=== PATIENT | male | born 1955 | race Caucasian/White ===

== ENCOUNTER → 2016-11-27 | Outpatient (CLI) | payer BC ==
[~2016-11-27] MED LIST: ASPI81TA21 PO; FISHOIL PO; GABA1CAP PO; GLIP10TA3 PO; LOSA100T2 PO; METF1000 PO; MULTTAB58 PO; OMEG10007 PO; SIMV10TA2 PO
--- NOTE | 2016-11-27 16:47 | DIAGNOSTIC IMAGING REPORT ---
KUB HISTORY: LEFT URETERAL STONE, NEPHROLITHIASIS COMPARISON: Abdomen and pelvis CT 05/12/2012. FINDINGS: The bowel gas pattern is unremarkable. There are no dilated loops of small bowel to suggest an obstruction. The renal shadows are partially obscured by overlying bowel. No definite right renal calculi. Possible 6 mm stone within the upper pole the left kidney. No ureteral calculi. Calcifications in the deep pelvis likely represent phleboliths. Calcifications overlying the sacrum appear to be secondary to the common iliac arteries. No pneumoperitoneum or pneumatosis. IMPRESSION: 1. Possible 6 mm stone within the upper pole of the left kidney. No right renal or ureteral calculi identified. 2. Calcifications in the deep pelvis are nonspecific but favor phleboliths. Electronically signed by: Omar Talley M.D. 11/27/2016 4:45 PM Dictated Date/Time: 11/27/2016 4:42 PM
== END | disposition home or self-care (01) ==
LOC: C.RADBC 15:50
PROVIDERS: ATTEND Nurse Practitioner Family
DX: N20.0 Calculus of kidney (principal); N20.1 Calculus of ureter

== ENCOUNTER → 2016-11-28 | Outpatient (CLI) | payer BC ==
[2016-11-28 19:10] LABS: BLOOD UREA NITROGEN 43 mg/dl (7-18)
== END | disposition home or self-care (01) ==
LOC: C.LABMFLN 10:13
PROVIDERS: ATTEND Nurse Practitioner Family
DX: N20.1 Calculus of ureter (principal)

== ENCOUNTER 2016-11-29 12:46 | Emergency (ER) | payer BC ==
[~2016-11-29] VITALS: Ht 180.3 cm; Wt 115.6 kg
[~2016-11-29 12:46] MED LIST changes: -OMEG10007 PO
[2016-11-29 12:52] VITALS: Ht 180.3 cm; Wt 115.6 kg
[2016-11-29] MEDS ORDERED: SODIUM CHLORIDE 0.9% 1000ML 1,000 ML IV STA (13:03)
[2016-11-29] MEDS ORDERED: ONDANSETRON INJ 2 MG/ML 2 ML VIAL IV STA (13:03)
[2016-11-29] MEDS ORDERED: MoRPHine SULFATE 4 MG/ML 1 ML CARP\\VIAL IV STA (13:09)
--- NOTE | 2016-11-29 13:59 | DIAGNOSTIC IMAGING REPORT ---
ABDOMEN AND PELVIS CT WITHOUT CONTRAST CT DOSE: 1149.09 mGycm HISTORY: Flank pain flank pain TECHNIQUE: Multiaxial CT images of the abdomen and pelvis were performed without the use of intravenous and oral contrast according to the standard department stone protocol. COMPARISON STUDY: None. FINDINGS: Minimal basilar dependent atelectasis. Liver demonstrates several hypodensities medial aspect right as well as medial left hepatic lobe. These are nonspecific in the absence of contrast enhancement. Pancreas is unremarkable. Right kidney is negative for hydronephrosis. Left kidney demonstrates slight edematous appearance with slight fullness left renal collecting system. A mild perinephric infiltrative changes similar to the contralateral right. There is slight fullness of the proximal left ureter compared to the right. A well-defined obstructing lesion or calculus is not appreciated. Bowel pattern is nonobstructive. There are several scattered diverticuli with no evidence of diverticulitis. Bladder is midline. IMPRESSION: Slight fullness left renal collecting system... 2. No evidence for an obstructing urinary tract calculus. 3. Differential considerations include left renal pyelonephritis versus recently passed calculus. 4. Chronic colonic diverticulosis Electronically signed by: Benedict Merlos M.D. 11/29/2016 1:57 PM Dictated Date/Time: 11/29/2016 1:50 PM
[2016-11-29 14:03] LABS: PARTIAL THROMBOPLASTIN RATIO 1.2; PROTHROMBIN TIME (PATIENT) 10.2 SECONDS (9.0-12.0)
[2016-11-29 14:19] LABS: HEMATOCRIT 39.4 % (42-52); MEAN CELL VOLUME 84.2 fL (80-100); MEAN CORPUSCULAR HEMOGLOBIN 29.5 pg (25-34); MEAN PLATELET VOLUME 12.8 fL (7.4-10.4); PLATELET COUNT 122 K/uL (130-400); RED BLOOD COUNT 4.68 M/uL (4.7-6.1); WHITE BLOOD COUNT 9.99 K/uL (4.8-10.8)
[2016-11-29 14:20] LABS: BASO % 0.2 %; BASO ABS # 0.02 K/uL (0-0.2); COMPLETE YES; EOS % 0.4 %; GIANT PLATELETS 1+; IG% 0.3 %; LYMPH % 19.1 %; LYMPH ABS # 1.91 K/uL (1.2-3.4); MONO % 8.7 %; NEUT % 71.3 %; PLT ESTIMATE DECREASED
[2016-11-29 14:33] LABS: BUN/CREATININE RATIO 17.9 (10-20); CALCIUM 9.4 mg/dl (8.5-10.1); CREATININE 1.8 mg/dl (0.60-1.40); POTASSIUM 4.1 mmol/L (3.5-5.1)
[2016-11-29 14:57] LABS: URINE APPEARANCE CLEAR (CLEAR); URINE BILIRUBIN NEG (NEG); URINE COLOR YELLOW; URINE EPITHELIAL CELL AUTO 0-5 /lpf (0-5); URINE NITRITE NEG (NEG); URINE SPECIFIC GRAVITY 1.008 (1.000-1.030); UROBILINOGEN NEG (NEG); ZZUR CULT IF INDIC CLEAN CATCH NO
[2016-11-29 14:58] LABS: MANUAL MICROSCOPIC REQUIRED? NO; REVIEW REQ? NO
--- NOTE | 2016-11-29 15:04 | EMERGENCY ROOM VISIT NOTE ---
History Report prepared by Sunny: Bibi Harrison Under the Supervision of: Dr. David Pineda D.O. First contact with patient: 12:57 Chief Complaint: KIDNEY STONE Stated Complaint: KIDNEY STONE, POSSIBLE RENAL FAILURE History of Present Illness The patient is a 61 year old male who presents to the Emergency Room with complaints persistent flank pain starting three days ago. He currently rates his discomfort at a 6/10 in severity. He is taking Percocet which is helps relieve his pain. Three days ago, the patient had a CT scan which showed that he had a kidney stone. He was referred to urology. They did some blood work yesterday. Today he was told that he might be in renal failure and that he needed to present to the ED. He denies any change in diet or fluid intake. Source of History: patient Onset: 3 days ago Position: other (flank) Symptom Intensity: 6/10 Quality: other (pain) Timing: other (persistent) Modifying Factors (Relieving): narcotics Review of Systems See HPI for pertinent positives & negatives. A total of 10 systems reviewed and were otherwise negative. Past Medical & Surgical Medical Problems: (1) Diabetes (2) Hypertension (3) Kidney stone Family History Diabetes mellitus Heart disease Hypertension Social History Smoking Status: Former Smoker Alcohol Use: none Marital Status: Housing Status: lives with family Occupation Status: employed Current/Historical Medications Scheduled Aspirin Enteric Coated (Ecotrin Or Generic), 81 MG PO DAILY Fish Oil (Correll-3), 1 CAP PO DAILY Gabapentin (Neurontin), 300 MG PO TID Glipizide (Glucotrol), 20 MG PO BID Losartan Potassium & Hydrochlo (Hyzaar), 1 TAB PO DAILY Metformin Hcl (Glucophage), 2 TABLETS PO BID Multiple Vitamin (Multivitamin), 1 TABLET PO DAILY Simvastatin (Zocor), 20 MG PO QPM Allergies Coded Allergies: No Known Allergies (Unverified , 08/07/16) Physical Exam Vital Signs Date Time Temp Pulse Resp B/P Pulse Ox O2 Delivery O2 Flow Rate FiO2 11/29/16 14:31 85 20 155/79 94 Room Air 11/29/16 12:52 37.0 102 18 160/85 97 Room Air Physical Exam CONSTITUTIONAL/VITAL SIGNS: Reviewed / noted above. GENERAL: Non-toxic in appearance. INTEGUMENTARY: Warm, dry, and [place]. HEAD: Normocephalic. EYES: without scleral icterus or trauma. ENT/OROPHARYNX: clear and moist. LYMPHADENOPATHY/NECK: Is supple without lymphadenopathy or meningismus. RESPIRATORY: Lungs clear and equal. CARDIOVASCULAR: Regular rate and rhythm. GI/ABDOMEN: Soft and nontender. No organomegaly or pulsatile mass. No rebound or guarding. Normal bowel sounds. EXTREMITIES: Warm and well perfused. BACK: No CVA tenderness. NEUROLOGICAL: Intact without focal deficits. PSYCHIATRIC: normal affect. MUSCULOSKELETAL: Normally developed with good muscle tone. Medical Decision & Procedures ER Provider Diagnostic Interpretation: Radiology results as stated below per my review and radiologist interpretation: ABDOMEN AND PELVIS CT WITHOUT CONTRAST CT DOSE: 1149.09 mGycm HISTORY: Flank pain flank pain TECHNIQUE: Multiaxial CT images of the abdomen and pelvis were performed without the use of intravenous and oral contrast according to the standard department stone protocol. COMPARISON STUDY: None. FINDINGS: Minimal basilar dependent atelectasis. Liver demonstrates several hypodensities medial aspect right as well as medial left hepatic lobe. These are nonspecific in the absence of contrast enhancement. Pancreas is unremarkable. Right kidney is negative for hydronephrosis. Left kidney demonstrates slight edematous appearance with slight fullness left renal collecting system. A mild perinephric infiltrative changes similar to the contralateral right. There is slight fullness of the proximal left ureter compared to the right. A well-defined obstructing lesion or calculus is not appreciated. Bowel pattern is nonobstructive. There are several scattered diverticuli with no evidence of diverticulitis. Bladder is midline. IMPRESSION: Slight fullness left renal collecting system... 2. No evidence for an obstructing urinary tract calculus. 3. Differential considerations include left renal pyelonephritis versus recently passed calculus. 4. Chronic colonic diverticulosis Electronically signed by: Benedict Merlos M.D. 11/29/2016 1:57 PM Dictated Date/Time: 11/29/2016 1:50 PM Laboratory Results 11/29/16 13:10 Red Blood Count 4.68, Mean Corpuscular Volume 84.2, Mean Corpuscular Hemoglobin 29.5, Mean Corpuscular Hemoglobin Concent 35.0, Mean Platelet Volume 12.8, Neutrophils (%) (Auto) 71.3, Lymphocytes (%) (Auto) 19.1, Monocytes (%) (Auto) 8.7, Eosinophils (%) (Auto) 0.4, Basophils (%) (Auto) 0.2, Neutrophils # (Auto) 7.12, Lymphocytes # (Auto) 1.91, Monocytes # (Auto) 0.87, Eosinophils # (Auto) 0.04, Basophils # (Auto) 0.02 11/29/16 13:10 Test 11/29/16 13:10 White Blood Count 9.99 K/uL (4.8-10.8) Red Blood Count 4.68 M/uL (4.7-6.1) Hemoglobin 13.8 g/dL (14.0-18.0) Hematocrit 39.4 % (42-52) Mean Corpuscular Volume 84.2 fL (80-100) Mean Corpuscular Hemoglobin 29.5 pg (25-34) Mean Corpuscular Hemoglobin Concent 35.0 g/dl (32-36) Platelet Count 122 K/uL (130-400) Mean Platelet Volume 12.8 fL (7.4-10.4) Neutrophils (%) (Auto) 71.3 % Lymphocytes (%) (Auto) 19.1 % Monocytes (%) (Auto) 8.7 % Eosinophils (%) (Auto) 0.4 % Basophils (%) (Auto) 0.2 % Neutrophils # (Auto) 7.12 K/uL (1.4-6.5) Lymphocytes # (Auto) 1.91 K/uL (1.2-3.4) Monocytes # (Auto) 0.87 K/uL (0.11-0.59) Eosinophils # (Auto) 0.04 K/uL (0-0.5) Basophils # (Auto) 0.02 K/uL (0-0.2) RDW Standard Deviation 41.1 fL (36.4-46.3) RDW Coefficient of Variation 13.5 % (11.5-14.5) Immature Granulocyte % (Auto) 0.3 % Immature Granulocyte # (Auto) 0.03 K/uL (0.00-0.02) Platelet Estimate DECREASED Giant Platelets 1+ Prothrombin Time 10.2 SECONDS (9.0-12.0) Prothromb Time International Ratio 1.0 (0.9-1.1) Activated Partial Thromboplast Time 31.7 SECONDS (21.0-31.0) Partial Thromboplastin Ratio 1.2 Urine Color YELLOW Urine Appearance CLEAR (CLEAR) Urine pH 6.0 (4.5-7.5) Urine Specific [place] 1.008 (1.000-1.030) Urine Protein NEG (NEG) Urine Glucose (UA) 2+ (NEG) Urine Ketones NEG (NEG) Urine Occult Blood 3+ (NEG) Urine Nitrite NEG (NEG) Urine Bilirubin NEG (NEG) Urine Urobilinogen NEG (NEG) Urine Leukocyte Esterase NEG (NEG) Urine WBC (Auto) 1-5 /hpf (0-5) Urine RBC (Auto) 10-30 /hpf (0-4) Urine Hyaline Casts (Auto) 1-5 /lpf (0-5) Urine Epithelial Cells (Auto) 0-5 /lpf (0-5) Urine Bacteria (Auto) NEG (NEG) Anion Gap 5.0 mmol/L (3-11) Est Creatinine Clear Calc Drug Dose 55.0 ml/min Estimated GFR () 45.7 Estimated GFR (Non- 39.5 BUN/Creatinine Ratio 17.9 (10-20) Calcium Level 9.4 mg/dl (8.5-10.1) Total Bilirubin 0.8 mg/dl (0.2-1) Direct Bilirubin 0.2 mg/dl (0-0.2) Aspartate Amino Transf (AST/SGOT) 12 U/L (15-37) Alanine Aminotransferase (ALT/SGPT) 37 U/L (12-78) Alkaline Phosphatase 45 U/L (45-117) Total Protein 8.4 gm/dl (6.4-8.2) Albumin 4.3 gm/dl (3.4-5.0) Lipase 350 U/L (73-393) Laboratory results as stated above per my review. Medications Administered Medications (Trade) Dose Ordered Sig/Mandi Route Start Time Stop Time Status Last Admin Dose Admin Sodium Chloride (Nss 1000ml) 1,000 ml @ 999 mls/hr Q1H1M STAT IV 11/29/16 13:03 11/29/16 14:03 DC 11/29/16 13:15 999 MLS/HR Ondansetron HCl (Zofran Inj) 4 mg NOW STAT IV 11/29/16 13:03 11/29/16 13:05 DC 11/29/16 13:29 4 MG Morphine Sulfate (MoRPHine SULFATE INJ) 4 mg NOW STAT IV 11/29/16 13:09 11/29/16 13:10 DC 11/29/16 13:30 4 MG ED Course 1301: Previous medical records were reviewed. The patient was evaluated in room A10. A complete history and physical examination was performed. 1303: Zofran Inj 4 mg IV, NSS 1000 ml @ 999 mls/hr IV. 1309: Morphine Sulfate 4 mg IV. 1500: On reevaluation, the patient is resting comfortably. I discussed the results and findings with the patient. He verbalized agreement of the treatment plan. He was discharged home. Medical Decision Differential considered: pancreatitis, hepatitis, or acute cholecystitis, AAA, UTI, pyelonephritis, kidney stones, appendicitis, diverticulitis, shingles, bowel obstruction mesenteric ischemia, intussusception,hernia, testicular torsion. This is a 61-year-old male who presents to the ED with a chief complaint of some left flank pain as well as being called about abnormal renal function from laboratories done yesterday. The patient denies any nausea or vomiting. He's been eating and drinking normally. He does report some left flank pain. Denies any other significant symptoms. No fevers or chills. No chest pains or shortness of breath. No abdominal pains. His exam was relatively unremarkable. CT scan of the abdomen and pelvis reveals some fullness in the left renal collecting system without evidence of obstructing stone. This could suggest a recently passed calculus versus pyelonephritis. CBC is unremarkable. PRP reveals a BUN of 32 and a creatinine of 1.8 and glucose 179. Yesterday the BUN is 43 and a creatinine was 2.7. This appears to have improved. Urinalysis revealed 3+ blood. There is no evidence of infection. The patient was told results of the test. He was given 1 L of normal saline IV. He was given IV Zofran. The patient was felt to be stable for discharge. Impression Primary Impression: Renal insufficiency Additional Impression: Kidney stone Scribe Attestation The scribe's documentation has been prepared under my direction and personally reviewed by me in its entirety. I confirm that the note above accurately reflects all work, treatment, procedures, and medical decision making performed by me. Departure Information Dispostion Home / Self-Care Referrals Dawna Neri (PCP) Patient Instructions ED Stone Renal Passed, My [facility] Additional Instructions Your CAT scan today did not show evidence of obstructing ureteral stone. The stone appears to have passed. Your kidney function has improved since yesterday. Creatinine yesterday was 2.7. Today it is 1.8. This should improve with fluids you received today. Continue drinking plenty of fluids over the weekend. Have your kidney function retested early next week by your doctor. Your blood sugar was elevated today at 179. Avoid Aspirin and Ibuprofen products for now. These can be bad for your kidneys. You may take Tylenol for discomfort. Problem Qualifiers
[2016-11-29] MEDS ORDERED: OMEG10007 PO (15:13)
[2016-11-29 15:32] VITALS: BP 126/73; PULSE 80; TEMP 37.5; O2SAT 94
== END 2016-11-29 15:30 | disposition home or self-care (01) ==
LOC: C.EDB 12:47 → C.EDA 15:30
DX: N28.9 Disorder of kidney and ureter, unspecified (principal); N20.0 Calculus of kidney; E11.9 Type 2 diabetes mellitus without complications; I10 Essential (primary) hypertension; Z79.82 Long term (current) use of aspirin; Z79.84 Long term (current) use of oral hypoglycemic drugs; Z79.899 Other long term (current) drug therapy; Z87.891 Personal history of nicotine dependence; Z82.49 Family history of ischemic heart disease and other diseases of the circulatory system; Z83.3 Family history of diabetes mellitus

== ENCOUNTER → 2016-12-03 | Outpatient (CLI) | payer BC ==
[~2016-12-03] MED LIST changes: -FISHOIL PO; +OMEG10007 PO
[2016-12-03 13:48] LABS: BLOOD UREA NITROGEN 32 mg/dl (7-18); BUN/CREATININE RATIO 22.5 (10-20)
== END | disposition home or self-care (01) ==
LOC: C.LABMFLN 09:20
PROVIDERS: ATTEND Nurse Practitioner Family
DX: N20.1 Calculus of ureter (principal)

== ENCOUNTER → 2016-12-06 | Outpatient (CLI) | payer BC | END | disposition home or self-care (01) | LOC: C.LABSPEC 17:03 | PROVIDERS: ATTEND Nurse Practitioner Family | DX: N20.0 Calculus of kidney (principal) ==

== ENCOUNTER → 2017-02-22 | Outpatient (CLI) | payer BC ==
[~2017-02-22] VITALS: Ht 180.3 cm; Wt 111.0 kg
[2017-02-22 15:46] VITALS: BP 120/77; PULSE 97; Ht 180.3 cm; Wt 111.0 kg
== END | disposition home or self-care (01) ==
LOC: C.NEUR 14:00
PROVIDERS: ATTEND Physician Assistant
DX: G47.30 Sleep apnea, unspecified (principal)

== ENCOUNTER → 2017-04-04 | Outpatient (CLI) | payer BC ==
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
--- NOTE | 2017-04-05 11:06 | POLYSOMNOGRAPH REPORT ---
CLINICAL DATA: A 61-year-old male with BMI of 34 referred for a CPAP titration study. He was referred by Dawna Neri and Nora Braxton. He had a sleep study 12 years ago which showed sleep apnea. He currently is wearing CPAP at 12 cm water pressure, but is still having symptoms and his John Day Sleepiness Score is elevated at 13/24. SLEEP ARCHITECTURE: Total recording time was 524 minutes. Total sleep period was 521 minutes. Total sleep time was 439.5 minutes divided between 370 minutes of non-REM sleep and 69.5 minutes of REM sleep. Sleep onset latency was 2.5 minutes. REM latency was slightly delayed at 170.5 minutes. Sleep efficiency was 84%. Wake after sleep onset was 81.5 minutes. Sleep consisted of stage N1 6%, stage N2 54%, stage N3 24%, and REM 16%. AROUSAL DATA: 46 arousals were recorded for an index of 6 per hour. PLM DATA: Significant PLMD was seen. There were 448 limb movements during sleep noted for an index of 61.2 per hour with arousal index of 1.8 per hour. RESPIRATORY DATA: The AHI was 2.5. There were 5 central, 4 obstructive and 1 mixed apneic episodes. The longest duration of apnea was 18.1 seconds. There were 8 hypopneic episodes. The mean duration of hypopnea was 20.9 seconds. OXIMETRY DATA: Transient nocturnal hypoxemia was seen. Oxygen neyda was 77% during non-REM sleep. The mean saturation was 92%. Time below 88% was 1 minute. EKG: Heart rates ranged from 58-127 beats per minute. No arrhythmias were noted. BACTERIOLOGIST PHARMACEUTICAL'S COMMENTS: The patient slept in the right, left, and supine positions. The patient was titrated up to his final pressure setting of 13 cm water pressure. At his final pressure setting, the patient slept for 155.4 minutes with an AHI of 1.2. IMPRESSION: Obstructive sleep apnea corrected with CPAP at 13 cm of water pressure. RECOMMENDATIONS: The patient's CPAP should be increased to 13 cm of water pressure. He should be seen back in followup within 90 days to document efficacy and compliance. [facility]
== END | disposition home or self-care (01) ==
LOC: C.NEUR 20:00
PROVIDERS: ATTEND Physician Assistant
DX: G47.33 Obstructive sleep apnea (adult) (pediatric) (principal)